=== PATIENT | female | born 1960 | race Caucasian/White ===

== ENCOUNTER 2017-05-01 13:01 | Emergency (ER) | payer OTHER ==
--- NOTE | 2017-05-01 13:31 | RAD ---
INDICATION: Cough and congestion for a week. COMPARISON: No relevant prior exams available on the [facility] PACS for comparison. TECHNIQUE: Dual energy PA and routine lateral views of the chest were obtained. REPORT: Clear lungs and pleural spaces. Negative for pneumothorax. The heart, pulmonary vasculature, and mediastinal contours are unremarkable. Unremarkable osseous structures and soft tissue contours. IMPRESSION: No evidence for pneumonia. Negative exam.
[2017-05-01 13:38] VITALS: BP 125/55
--- NOTE | 2017-05-01 13:49 | UC ---
Respiratory Complaint HPI - HPI Summary HPI Summary: 56F presents with worsening sinus congestion and cough for past three days. She states that she had a cold a week ago that seemed to get better and then all of a sudden it got worst. She admits to sinus pressure and a headache. She admits to some SOB. She does not have any medical conditions. She denies any abdominal pain, n/v/d. She denies any sore throat or ear pain or fever. - History of Current Complaint Chief Complaint: UCRespiratory Stated Complaint: COUGH, CONGESTED Time Seen by Provider: 05/01/17 13:41 - Allergies/Home Medications Allergies/Adverse Reactions: Allergies Allergy/AdvReac Type Severity Reaction Status Date / Time No Known Allergies Allergy Verified 05/01/17 13:38 Home Medications: Home Medications Acetaminophen [Tylenol] 2 cap PO Q4H PRN 05/01/17 [History Confirmed 05/01/17] PMH/Surg Hx/FS Hx/Imm Hx Endocrine History: Other Other Endocrine History: no DM Respiratory History: Other Other Respiratory History: no asthma - Surgical History Surgical History: None - Family History Known Family History: Positive: Hypertension - Social History Alcohol Use: Occasionally Substance Use Type: None Smoking Status (MU): Never Smoked Tobacco - Immunization History Most Recent Influenza Vaccination: 2017 Review of Systems Constitutional: Negative ENT: Sinus Congestion, Sinus Pain/Tenderness Respiratory: Cough All Other Systems Reviewed And Are Negative: Yes Physical Exam Triage Information Reviewed: Yes Appearance: Well-Appearing Vital Signs: Initial Vital Signs Temp 99.9 F 05/01/17 13:34 Pulse 78 05/01/17 13:34 Resp 16 05/01/17 13:34 BP 125/55 05/01/17 13:34 Pulse Ox 100 05/01/17 13:34 Vital Signs Reviewed: Yes Eyes: Positive: Conjunctiva Clear ENT: Positive: Pharynx normal, Nasal congestion, TMs normal, Sinus tenderness Neck: Positive: Supple, Nontender, No Lymphadenopathy Respiratory: Positive: Lungs clear, Normal breath sounds Cardiovascular: Positive: RRR Abdomen Description: Positive: Nontender, Soft Bowel Sounds: Positive: Present Musculoskeletal Exam: Normal Neurological Exam: Normal Psychological Exam: Normal Skin Exam: Normal UC Diagnostic Evaluation - Laboratory O2 Sat by Pulse Oximetry: 100 - Radiology Xray Interpretation: No Acute Changes Radiology Interpretation Completed By: Radiologist Respiratory Course/Dx - Course Course Of Treatment: 56F presents with worsening sinus congestion and cough for past three days. She states that she had a cold a week ago that seemed to get better and then all of a sudden it got worst. She admits to sinus pressure and a headache. She admits to some SOB. She does not have any medical conditions. She denies any abdominal pain, n/v/d. She denies any sore throat or ear pain or fever. on exam has sinus tenderness. lungs CTA. chest xray normal. will treat for sinus infection with augmentin and tessalon for cough. patient understand and agrees with plan. - Differential Dx/Diagnosis Differential Diagnosis/HQI/PQRI: Bronchitis, Lower Resp Infection, Sinusitis Provider Diagnoses: upper resp infection, sinusitis Discharge - Discharge Plan Condition: Good Disposition: HOME Prescriptions: Amoxicillin/Clavulanate TAB* [Augmentin TAB 875*] 875 mg PO BID #20 tab Benzonatate CAP* [Tessalon 100 MG CAP*] 100 mg PO TID PRN #21 cap PRN Reason: Cough Patient Education Materials: Sinusitis (ED) Referrals: [facility] [Outside] Additional Instructions: Take antibiotic twice a day for 10 days Use saline spray in nose as much as needed Take tessalon three times a day for cough Use OTC decongestions Follow up with primary care physician within a week for no improvement Return to ED with any new or worsening symptoms
== END 2017-05-01 13:55 | disposition home or self-care (01) ==
LOC: UCEAST 13:01
DX: J06.9 Acute upper respiratory infection, unspecified (principal); J32.9 Chronic sinusitis, unspecified
CPT/HCPCS: 71020; 99212; G0463

== ENCOUNTER 2017-11-05 18:25 | Emergency (ER) | payer OTHER ==
[2017-11-05 18:47] VITALS: BP 114/60
--- NOTE | 2017-11-05 19:06 | ED ---
Skin Complaint - HPI Summary HPI Summary: 56-year-old female with a history of shingles presents with rash since yesterday that she is concerned is the same. The rash is burning/painful in her left flank. She denies any cough, congestion, respiratory difficulty. She states that she has been having some social issues that may have stressed her body lately. She has not received a shingles vaccine. - History of Current Complaint Chief Complaint: UCSkin Time Seen by Provider: 11/05/17 18:51 Stated Complaint: RASH Hx Obtained From: Patient Pain Intensity: 3 - Allergy/Home Medications Allergies/Adverse Reactions: Allergies Allergy/AdvReac Type Severity Reaction Status Date / Time No Known Allergies Allergy Verified 11/05/17 18:46 PMH/Surg Hx/FS Hx/Imm Hx Previously Healthy: Yes - did have shingles in the past Endocrine/Hematology History: Denies: Hx Diabetes Cardiovascular History: Denies: Hx Hypertension, Hx Pacemaker/ICD Musculoskeletal History: Denies: Hx Scoliosis Sensory History: Denies: Hx Hearing Aid Neurological History: Denies: Hx Headaches, Other Neuro Impairments/Disorders Psychiatric History: Denies: Hx Panic Disorder - Cancer History Hx Chemotherapy: No Hx Radiation Therapy: No - Surgical History Surgery Procedure, Year, and Place: ORAL SURGERY Infectious Disease History: Yes Infectious Disease History: Reports: Hx Shingles Denies: Traveled Outside the [place] in Last 30 Days - Family History Known Family History: Positive: Hypertension - Social History Alcohol Use: Occasionally Substance Use Type: Reports: None Smoking Status (MU): Never Smoked Tobacco Review of Systems Negative: Fever, Fatigue Negative: Shortness Of Breath, Cough Positive: Rash All Other Systems Reviewed And Are Negative: Yes Physical Exam Triage Information Reviewed: Yes Vital Signs On Initial Exam: Initial Vitals Temp Pulse Resp BP Pulse Ox 97.9 F 83 16 114/60 100 11/05/17 18:43 11/05/17 18:43 11/05/17 18:43 11/05/17 18:43 11/05/17 18:43 Vital Signs Reviewed: Yes Appearance: Positive: Well-Appearing, No Pain Distress Skin: Positive: Other - 2 areas of erythematous vesicular lesions in the left flank in a dermatomal pattern. ENT: Positive: Hearing grossly normal Respiratory/Lung Sounds: Positive: Clear to Auscultation Cardiovascular: Positive: RRR Musculoskeletal: Positive: Strength/ROM Intact Neurological: Positive: Normal Diagnostics - Vital Signs Vital Signs Temp Pulse Resp BP Pulse Ox 11/05/17 18:43 97.9 F 83 16 114/60 100 - Laboratory Lab Statement: Any lab studies that have been ordered have been reviewed, and results considered in the medical decision making process. Course/Dx - Course Course Of Treatment: Patient with classic dermatomal distribution of zoster. Treat with Valtrex. Follow up primary care physician, discuss vaccine. - Diagnoses Provider Diagnoses: Herpes zoster Discharge - Sign-Out/Discharge Documenting (check all that apply): Discharge/Admit/Transfer - Discharge Plan Condition: Good Disposition: HOME Prescriptions: ValACYclovir (*) [Valtrex 1 GM(*)] 1 gm PO TID #21 tab Patient Education Materials: Shingles (ED), Shingles Vaccine (ED) Referrals: Shun Negro MD [Primary Care Provider] - Additional Instructions: Use Tylenol, ibuprofen as needed for discomfort. If the pain is worse, see your doctor. talk to your doctor about the shingles vaccine. Return if worse, new symptoms or other concerns. - Billing Disposition and Condition Condition: GOOD Disposition: HOME
== END 2017-11-05 19:09 | disposition home or self-care (01) ==
LOC: UCEAST 18:25
DX: B02.9 Zoster without complications (principal); Z82.49 Family history of ischemic heart disease and other diseases of the circulatory system
CPT/HCPCS: 99212; G0463

== ENCOUNTER 2019-06-18 11:09 | Day surgery (SDC) | payer OTHER ==
--- NOTE | 2019-06-10 17:58 | HP ---
PREOPERATIVE HISTORY AND PHYSICAL: DATE OF ADMISSION/SURGERY: 06/18/19 DATE OF OFFICE VISIT/ENCOUNTER: 06/06/19 ATTENDING SURGEON: Starla Magdaleno MD * (DICTATED BY OSIEL JEAN) PROCEDURE: Open reduction and internal fixation of left long finger middle phalanx. HISTORY OF PRESENT ILLNESS: This is a 58-year-old female, who injured her middle and ring fingers on the left hand on 05/28/19. She was visiting family and she had a dog leash wrapped around her hand. The dog pulled and she suffered a fracture of her middle finger and sprain of the ring finger. She was seen by a physician who is a family friend at the time and her finger was reduced. She has a ring on her ring finger that was not removed and now she is not able to get the ring off, but does not appear constrictive. She was placed in a splint and had some x-rays which showed a nondisplaced fracture of the middle phalanx. Visibly, her finger remained crooked. She followed up with Dr. Magdaleno when she got back into town and after evaluation and review of x-rays , Dr. Magdaleno is recommending surgical intervention for a best outcome. The patient has consented to proceed. PAST MEDICAL HISTORY: Positive for: 1. History of shingles. 2. Peptic ulcer disease. PAST SURGICAL HISTORY: 1. Bilateral cataracts. 2. Gum graft. CURRENT MEDICATIONS: Tylenol 325 mg 2 tabs q.4 hours p.r.n. pain. ALLERGIES: No known drug allergies. FAMILY MEDICAL HISTORY: Diabetes, heart disease, hypertension, cancer. 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 She denies recreational drug use and tobacco use. She drinks alcohol on occasion. REVIEW OF SYSTEMS: Negative for general, cephalic, cardiovascular, respiratory , GI, , other musculoskeletal, integumentary, endocrine, neurologic, and hematologic symptoms. Infectious Disease: Negative for MRSA, hepatitis C, HIV. PHYSICAL EXAMINATION GENERAL: A well-developed, well-nourished 58-year-old female, in no acute distress. VITAL SIGNS: Height 5 feet 4 inches, weight 143 pounds. Pulse rate 67, blood pressure 124/60. HEENT: Normocephalic, atraumatic. Pupils are equal, round, and reactive to light and accommodation. Extraocular movements are intact. Throat is clear. NECK: Supple. No palpable lymph nodes. PULMONARY: Lungs are clear to auscultation bilaterally. No wheezes, rales, or rhonchi. CARDIOVASCULAR: Regular rate and rhythm. S1, S2. No murmurs, rubs, or gallops. No edema. ABDOMEN: Positive bowel sounds. Soft, nontender. NEUROLOGIC: Alert and oriented x3. Cranial nerves II through XII are intact. Sensation is intact to light touch. MUSCULOSKELETAL: On exam of her left hand, she has swelling of the ring finger , especially the PIP joint and she has tenderness to palpation there and it is painful when she tries to move it. Ring is in place, but easily rotated, do not appear to be constricting at this point. Middle finger has a bit of rotational deformity. She has increased pain with attempt to flex both fingers , but she has full extension. Skin is intact. Neurovascular function is intact. IMAGING STUDIES: X-rays, AP, lateral and oblique of the left ring finger appear normal. The left middle finger shows an oblique fracture of the middle phalanx, extraarticular with some mild displacement. IMPRESSION: Left middle finger middle phalanx fracture, which is displaced. PLAN: The patient is scheduled to undergo an open reduction and internal fixation of left long finger middle phalanx with Dr. Magdaleno on 06/18/19. She will return to the office 10 days postop for followup and suture removal. She has [place] which was prescribed from the emergency department that she will plan on using for postoperative pain management and we will refill if necessary. OSIEL JEAN [id number]/[facility] #: [id number] MTDGiuseppe
[~2019-06-18 11:09] MED LIST: Acetaminophen TAB* 325 MG PO ONE; Buffered Lidocaine 1% SYRIN* 1 ML/SYRINGE INTRADERM ONE; Famotidine IV* 10 MG/ML 2 ML (20 mg) IV ONE; Gabapentin CAP(*) 300 MG PO ONE; Lactated Ringers 1000 ML Bag* 1,000 ML IV SCH
[2019-06-18] MEDS ORDERED: Midazolam* 1 MG/ML 2 ML VIAL (2 MG) ONE (11:24)
[2019-06-18] MEDS ORDERED: fentaNYL* 50 MCG/ML 2 ML VIAL (100 MCG VIAL) ONE (11:24)
[2019-06-18] MEDS ORDERED: ceFAZolin 2 GM PREMIX in ORs 2 GM/50 ML BAG ONE (11:25)
[2019-06-18] MEDS ORDERED: Acetaminophen TAB* 325 MG ONE (11:25)
[2019-06-18] MEDS ORDERED: Famotidine IV* 10 MG/ML 2 ML (20 mg) ONE (11:25)
[2019-06-18] MEDS ORDERED: Gabapentin CAP(*) 300 MG ONE (11:25)
[2019-06-18] MEDS ORDERED: Lidocaine 1% INJ* 10 MG/ML 30 ML SDV ONE (12:30)
[2019-06-18] MEDS ORDERED: Ketorolac INJ* 30 MG/ML 1 ML VIAL ONE (12:57)
[2019-06-18] MEDS ORDERED: Ondansetron INJ* 2 MG/ML VIAL ONE (12:57)
[2019-06-18] MEDS ORDERED: Propofol* 10 MG/ML 20 ML BTL ONE (12:57)
[2019-06-18] MEDS ORDERED: Dexamethasone IV* 4 MG/ML 1 ML (4 MG) ONE (12:57)
[2019-06-18] MEDS ORDERED: Lidocaine 2% PF * 5 ML VIAL ONE (12:57)
[2019-06-18] MEDS ORDERED: DiMENhydriNATE IV* 50 MG/ML VIAL IV PUSH PRN (13:51)
[2019-06-18] MEDS ORDERED: HYDROcodone/ACETAMIN 5-325 MG* 1 TAB PO PRN (13:51)
[2019-06-18] MEDS ORDERED: Ondansetron INJ* 2 MG/ML VIAL IV PRN (13:51)
[2019-06-18] MEDS ORDERED: Naloxone* 0.4 MG/ML 1 ML VIAL IV PRN (13:51)
[2019-06-18 14:41] VITALS: BP 113/60
--- NOTE | 2019-06-19 00:51 | OP ---
DATE OF OPERATION: 06/18/19 [facility] DATE OF : 64 SURGEON: Starla Magdaleno MD SEWER LINE REPAIRER: OSIEL Luna ANESTHESIA: Local MAC. PRE-OP DIAGNOSIS: Middle phalanx fracture of the long finger on the left hand. POST-OP DIAGNOSIS: Middle phalanx fracture of the long finger on the left hand. OPERATIVE PROCEDURE: Open reduction and pinning of the left middle finger middle phalanx. INDICATIONS: Dimple is a 58-year-old woman who fell and injured her left middle finger. She suffered a fracture of the middle phalanx which has rotational deformity. She presents for open reduction and pinning. The injury occurred a few weeks ago and the patient went away for vacation so the fracture has already begun to heal, will require open reduction. ESTIMATED BLOOD LOSS: Zero. TOURNIQUET TIME: About 20 minutes with a Tourni-Cot. DESCRIPTION OF PROCEDURE: The patient was brought to the operating room, was given a sedation anesthetic and a digital block with 10 cc of 1% plain lidocaine. The skin of her left upper extremity was prepped and draped in usual sterile fashion. The tourniquet was placed on the finger, was left on for the duration of the procedure. A longitudinal incision was made on the dorsal aspect of the finger and we incised either side of the extensor tendon to gain access to the fracture. The fracture callus was taken down and then we were able to rotate the fracture fragments into alignment. They were secured with three 0.35-inch K wires. The position of the K wires and fracture fragments checked on the C-arm in the AP and lateral views and found to be satisfactory and clinically the finger was not twisted anymore. The wound was irrigated and the skin edges were reapproximated with 4-0 nylon sutures. The wound was dressed with Xeroform, 4x4, Webril, and an Alumafoam splint and car taped to the index finger. The patient tolerated the procedure well and was brought to the recovery room in good condition. [id number]/[facility] #: [id number] MTDGiuseppe
== END 2019-06-18 15:09 | disposition home or self-care (01) ==
LOC: OREAST 11:09
PROVIDERS: ATTEND Orthopaedic Surgery
DX: S62.623A Displaced fracture of middle phalanx of left middle finger, initial encounter for closed fracture (principal); W54.1XXA Struck by dog, initial encounter; Y93.K1 Activity, walking an animal; Y92.9 Unspecified place or not applicable
CPT/HCPCS: 76000; A9270-GY; C1776; J0690; J1100; J1885; J2250; J2405; J2704; J3010